=== PATIENT | female | born 1960 | race Caucasian/White ===

== ENCOUNTER 2017-04-26 12:43 | Emergency (ER) | payer OTHER ==
[~2017-04-26] VITALS: Ht 165.1 cm; Wt 77.1 kg
[~2017-04-26 12:43] MED LIST: BENTYL10 MG/ML; ESTROVEN; PHENERGAN25 MG; SIMVASTATIN40 MG; TOPROL XL25 MG
[2017-04-26] MEDS ORDERED: PREMARIN0.45 MG (14:38)
[2017-04-26] MEDS ORDERED: ZOLOFT25 MG (14:38)
[2017-04-26] MEDS ORDERED: SYNTHROID125 MCG (14:38)
[2017-04-26] MEDS ORDERED: CLONAZEPAM0.5 MG (14:39)
== END 2017-04-26 20:56 | disposition home or self-care (01) ==
LOC: ER 12:43
DX: K52.89 Other specified noninfective gastroenteritis and colitis (principal); J06.9 Acute upper respiratory infection, unspecified

== ENCOUNTER 2023-12-22 10:15 | Emergency (ER) | payer OTHER ==
[~2023-12-22] VITALS: Ht 162.6 cm; Wt 80.7 kg
[~2023-12-22 10:15] MED LIST changes: +CLONAZEPAM0.5 MG; +PREMARIN0.45 MG; +SYNTHROID125 MCG; +ZOLOFT25 MG
[2023-12-22] MEDS ORDERED: COZAAR100 MG PO (10:23)
[2023-12-22] MEDS ORDERED: DEXAMETHASONE SODIUM PHOSPHATE 4 MG/ML VIAL IM STA (10:50)
== END 2023-12-22 11:58 | disposition home or self-care (01) ==
LOC: ER 10:16
DX: H01.004 Unspecified blepharitis left upper eyelid (principal); Z88.8 Allergy status to other drugs, medicaments and biological substances; Z91.013 Allergy to seafood; E03.8 Other specified hypothyroidism